=== PATIENT | female | born 1955 | race Caucasian/White ===

== ENCOUNTER → 2022-11-01 | Outpatient (CLI) | payer MEDICARE, OTHER, SELFPAY ==
[2022-11-01 17:51] LABS: Absolute Neutrophil Count 3.9 X10^3/uL (2.0-7.7); Basophil# 0.04 X10^3/uL; Basophil% 0.5 % (0-1); Eosinophil# 0.14 X10^3/uL; Eosinophils% 1.9 % (0-5); Hematocrit 39.5 % (37-47); Hemoglobin 13.5 g/dL (12.0-15.0); Lymphocyte % 36.3 % (19-41); Mean Corp Hgb Conc 34.2 g/dL (32-36); Mean Corpuscular Hgb 31.9 pg (27.0-32.0); Mean Corpuscular Volume 93.4 fL (81-99); Mean Platelet Vol. 9.8 fl (6.2-12.0); Monocyte# 0.63 X10^3/uL; Monocyte% 8.5 % (0-10); NRBC Flagged by Analyzer 0 % (0-5); Neutrophil # 3.91 X10^3/uL (2.7-7.7); Neutrophil % 52.5 % (47-70); Platelet Count 314 K/mm3 (150-450); RBC Distribution Width CV 12.3 % (11.6-14.6); RBC Distribution Width SD 42.4 fl (35.1-43.9); Red Blood Count 4.23 M/mm3 (4.2-5.4); White Blood Count 7.4 K/mm3 (4.4-11.0)
[2022-11-01 18:26] LABS: ALB/GLOB Ratio 1.1 RATIO (0.9-2.4); AST(SGOT) 21 U/L (15-37); Alanine Aminotransfer ALT/SGPT 33 U/L (13-56); Albumin, Serum 4.2 g/dL (3.2-5.0); Alkaline Phosphatase 55 U/L (45-117); Anion Gap 7 (5-15); BUN 21 mg/dL (7-18); BUN/Creat Ratio 25.8 RATIO (10-20); Calcium,Total 9.4 mg/dL (8.5-10.1); Chloride 102 mmol/L (98-107); Creatinine, Serum 0.81 mg/dL (0.55-1.02); EST Glomerular Filtration Rate 74 mL/min (>60); Est Glom Filt Rate - Afr Amer 90 mL/min (>60); Globulin 3.8 g/dL (2.2-4.2); Glucose 92 mg/dL (74-106); Potassium 3.7 mmol/L (3.5-5.1); Sodium Level 138 mmol/L (136-145)
[2022-11-01 18:51] LABS: Hepatitis C Antibody Non-Reactive (Nonreactive); Vitamin D,25 Hydroxy 98.9 ng/mL
== END | disposition home or self-care (01) ==
LOC: POLAB3 15:57
PROVIDERS: Visit Provider Family Medicine Geriatric Medicine
DX: Z13.89 Encounter for screening for other disorder (principal); I10 Essential (primary) hypertension; E55.9 Vitamin D deficiency, unspecified
CPT/HCPCS: 36415; 80053; 82306; 84443; 85025; 86803

== ENCOUNTER → 2023-05-03 | Outpatient (CLI) | payer MEDICARE, OTHER, SELFPAY ==
[2023-05-03 12:07] LABS: Absolute Lymphocyte Count 1.96 X10^3/uL (0.83-4.51); Absolute Neutrophil Count 3.6 X10^3/uL (2.0-7.7); Basophil# 0.04 X10^3/uL; Basophil% 0.6 % (0-1); Eosinophil# 0.14 X10^3/uL; Eosinophils% 2.2 % (0-5); Hematocrit 37.8 % (37-47); Hemoglobin 12.9 g/dL (12.0-15.0); Lymphocyte # 1.96 X10^3/ul (0.83-4.51); Lymphocyte % 30.9 % (19-41); Mean Corp Hgb Conc 34.1 g/dL (32-36); Mean Corpuscular Hgb 32.2 pg (27.0-32.0); Mean Corpuscular Volume 94.3 fL (81-99); Mean Platelet Vol. 10.2 fl (6.2-12.0); Monocyte# 0.62 X10^3/uL; Monocyte% 9.8 % (0-10); NRBC Flagged by Analyzer 0 % (0-5); Neutrophil # 3.57 X10^3/uL (2.7-7.7); Neutrophil % 56.2 % (47-70); Platelet Count 283 K/mm3 (150-450); RBC Distribution Width SD 41.6 fl (35.1-43.9); Red Blood Count 4.01 M/mm3 (4.2-5.4); White Blood Count 6.4 K/mm3 (4.4-11.0)
[2023-05-03 12:34] LABS: Vitamin D,25 Hydroxy 87.9 ng/mL
[2023-05-03 12:42] LABS: ALB/GLOB Ratio 0.9 RATIO (0.9-2.4); AST(SGOT) 21 U/L (15-37); Alanine Aminotransfer ALT/SGPT 30 U/L (13-56); Albumin, Serum 3.5 g/dL (3.2-5.0); Alkaline Phosphatase 40 U/L (45-117); Anion Gap 6 (5-15); BUN 20 mg/dL (7-18); BUN/Creat Ratio 20.6 RATIO (10-20); Chloride 105 mmol/L (98-107); Creatinine, Serum 0.97 mg/dL (0.55-1.02); EST Glomerular Filtration Rate 60 mL/min (>60); Est Glom Filt Rate - Afr Amer 73 mL/min (>60); Globulin 3.7 g/dL (2.2-4.2); Glucose 93 mg/dL (74-106); Potassium 3.7 mmol/L (3.5-5.1); Protein, Total 7.2 g/dL (6.4-8.2); Sodium Level 138 mmol/L (136-145); Thyroid Stim Hormone (TSH) 1.04 uIU/mL (0.358-3.74)
== END | disposition home or self-care (01) ==
PROVIDERS: Visit Provider Family Medicine Geriatric Medicine
DX: I10 Essential (primary) hypertension (principal); E55.9 Vitamin D deficiency, unspecified
CPT/HCPCS: 36415; 80053; 82306; 84443; 85025

== ENCOUNTER → 2023-08-10 | Outpatient (CLI) | payer MEDICARE, OTHER, SELFPAY ==
--- NOTE | 2023-08-10 15:41 | RAD_ITS ---
INDICATION: LUMBAR DISC DISEASE EXAMINATION/TECHNIQUE: X-RAY - XR Spine Lumbar Min 4 Views COMPARISON: None. FINDINGS: VERTEBRAE: Preserved vertebral body height. No fracture. No spondylolisthesis. Preservation of the normal lumbar lordosis. Moderate multilevel facet arthropathy. Slight right convex curvature of the lumbar spine. DISCS: Moderate multilevel degenerative disc disease and spondylosis. INCLUDED ABDOMEN: Included bowel gas pattern is non-obstructive. RAD/L/S Spine Min 4 Views IMPRESSION: No evidence of lumbar spinal fracture or spondylolisthesis. Moderate multilevel degenerative disc disease and spondylosis. Slight right convex curvature of the lumbar spine. Electronically Signed: Chivo Page MD at 0:12 EDT ,
== END | disposition home or self-care (01) ==
LOC: RAD 15:34
PROVIDERS: PCP Family Medicine Geriatric Medicine; Referring Provider Family Medicine Geriatric Medicine; Visit Provider Family Medicine Geriatric Medicine
DX: M51.9 Unspecified thoracic, thoracolumbar and lumbosacral intervertebral disc disorder (principal)
CPT/HCPCS: 72110

== ENCOUNTER → 2023-09-05 | Outpatient (CLI) | payer MEDICARE, OTHER, SELFPAY ==
--- NOTE | 2023-09-05 07:26 | MRI_ITS ---
STUDY: MRI LUMBAR SPINE WITHOUT CONTRAST REASON FOR EXAM: Female, 67 years old. RADICULOPATHY TECHNIQUE: Standardized fat and water weighted pulse sequences were obtained in the sagittal and axial planes. COMPARISON: Radiograph lumbar spine August 10, 2023 FINDINGS: T12-L1: Normal endplates. Normal disc height, hydration and morphology. Normal bilateral facet joints. Normal central canal and bilateral lateral recesses. Normal bilateral intervertebral neural foramina. Normal lumbar lordosis. There is no substantial scoliosis. Normal conus medullaris that terminates at the L2. L1-2: Normal endplates. Normal disc height, hydration and morphology. Normal bilateral facet joints. Normal central canal and bilateral lateral recesses. Normal bilateral intervertebral neural foramina. Small posterior broad-based central disc protrusion. L2-3: Normal endplates. Normal disc height, hydration and morphology. Normal bilateral facet joints. Normal central canal and bilateral lateral recesses. Normal bilateral intervertebral neural foramina. L3-4: Normal endplates. Normal disc height, hydration and morphology. Normal bilateral facet joints. Normal central canal and bilateral lateral recesses. Normal bilateral intervertebral neural foramina. L4-5: Normal endplates. Normal disc height, hydration and morphology. Normal bilateral facet joints. Normal central canal and bilateral lateral recesses. Moderate broad-based posterior disc protrusion and moderate narrowing bilateral intervertebral neural foramina. L5-S1: Normal endplates. Normal disc height, hydration and morphology. Normal bilateral facet joints. Normal central canal and bilateral lateral recesses. Normal bilateral intervertebral neural foramina. Normal visualized sacral ala. Normal visualized paraspinous soft tissue structures. MRI/Spine Lumbar (Routine) IMPRESSION: Moderate disc protrusion L4-5 with moderate bilateral neural foraminal narrowing. Small disc protrusion L1-2. Electronically Signed: Hank Montelongo MD at 23:32 EST ,
== END | disposition home or self-care (01) ==
LOC: MRI 09:00
PROVIDERS: PCP Family Medicine Geriatric Medicine; Referring Provider Family Medicine Geriatric Medicine; Visit Provider Family Medicine Geriatric Medicine
DX: M54.17 Radiculopathy, lumbosacral region (principal)
CPT/HCPCS: 72148

== ENCOUNTER → 2023-11-07 | Outpatient (CLI) | payer MEDICARE, OTHER, SELFPAY ==
--- OUTSIDE RECORDS SUMMARY | 2023-11-07 09:58 | XMS RPT_ITS | CCD ---
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 Name Role Phone Yudelka Radha CAM Primary Care Provider [phone] Carl Sahu III Unavailable Mathew Robledo OD Unavailable Lei Mckenna MD Unavailable Jadyn Caldwell DO, Arnold D Unavailable YUDELKA, RADHA L Primary Care Unavailable YUDELKA, RADHA L Primary Care Unavailable YUDELKA, RADHA L Referring Unavailable YUDELKA, RADHA L Attending Unavailable ZAPIEN, CANDY Attending Unavailable YUDELKA, RADHA L Primary Care Unavailable YUDELKA, RADHA L Primary Care Unavailable YUDELKA, RADHA L Referring Unavailable YUDELKA, RADHA L Attending Unavailable Yudelka DORadha L Primary Care Provider Carl Sahu III Unavailable [phone] Mathew Robledo OD Unavailable Lei Mckenna MD Unavailable Jadyn Caldwell DO, Arnold D Unavailable Yudelka Radha CAM Primary Care Provider [phone] Carl Sahu III Unavailable Mathew Robledo OD Unavailable Lei Mckenna MD Unavailable Jadyn Caldwell DO, Arnold D Unavailable RADHA JHA Attending Unavailable CARL SAHU Attending Unavailable Bala MOSES, Lei Unavailable Luis Alberto FRIAS MD, Walter Watson Unavailable CARL SAHU III Attending Unavailab CARL Schafer III Referring Unavailab meg Mckenna MD, Lei Unavailable Allergies Allergy Classification Reported Allergen(s) Allergy Type Date of Onset Reaction(s) Facility (2 sources) Penicillins; Translations: [PENICILLINS] Propensity to adverse reactions to drug 9 Unknown [facility] (13 sources) Penicillins Propensity to adverse reactions to drug 9 Unknown, Swelling [facility] Medications Completed/Discontinued Medications Medication Drug Class(es) Dates Sig (Normalized) Sig (Original) aspirin 81 mg delayed release oral tablet (10 sources) Platelet Aggregation Inhibitor, Nonsteroidal Anti-inflammatory Drug take 1 tablet by mouth once daily aspirin, enteric coated (ASPIRIN, ENTERIC COATED) 81 mg EC tablet Take 81 mg by mouth once daily. 0 Active Problems Active Problems Problem Classification Problem Date Documented Date Episodic/Chronic Essential hypertension (16 sources) Essential hypertension; Translations: [Essential (primary) hypertension] 04-21-2020 Chronic Immunizations and screening for infectious disease (4 sources) Encounter for immunization; Translations: [Requires varicella vaccination] Onset: 08-17-2021 Episodic Menopausal disorders (1 source) Postmenopausal atrophic vaginitis; Translations: [Postmenopausal atrophic vaginitis] Onset: 08-16-2023 Chronic Osteoporosis (14 sources) Osteoporosis; Translations: [Age-related osteoporosis without current pathological fracture] 01-09-2019 Chronic Other screening for suspected conditions (not mental disorders or infectious disease) (1 source) Encounter for screening mammogram for malignant neoplasm of breast; Translations: [Encounter for screening mammogram for malignant neoplasm of breast] Onset: 08-16-2023 Episodic Retinal detachments; defects; vascular occlusion; and retinopathy (14 sources) Degenerative disorder of macula ; Translations: [Unspecified macular degeneration] 01-09-2019 Chronic Thyroid disorders (16 sources) Hypothyroidism; Translations: [Hypothyroidism, unspecified] 01-09-2019 Chronic Past or Other Problems Problem Classification Problem Date Documented Da te Episodic/Chronic Unclassified (1 source) OSTEOPEROSIS Onset: 09-24-2022 Results Test Name Value Interpretation Reference Range Facil ity Vital Signs Date Time Vital Sign Value Performing Clinician Tamanna lity 07-30-2022 14:44-0400 Body temperature 99.1 [degF] Nurse [place] Work Phone: [facility] Encounters Encounter Date Encounter Type Care Provider Facility Start: 09-25-2023 Refill Thelma Quill en SHUTTLE REPAIRER.FENDER REPAIRER Work Phone: [facility] Procedures Date Procedure Procedure Detail Performing Clinician Start: 01-15-2023 MARIANN SCREENING W TRACY Sahu MD Work Phone: Start: 01-15-2023 Mammography Radha Shil ling DO Work Phone: Start: 09-24-2022 CREATININE BLD Radha L Yudelka DO Work Phone: Start: 07-30-2022 INFLUENZA SEASONAL QUADRIVALENT HIGH DOSE AGE 65+ Radha L Yudelka DO Work Phone: Start: 04-28-[address] ri L Yudelka DO Work Phone: Start: 04-28-2022 T3 FREE BLD Radha L Sh illing DO Work Phone: Start: 04-28-2022 TSH BLD Radha L Sh illing DO Work Phone: Start: 04-28-2022 Adult depression scr eening assessment Radha Yudelka DO Work Phone: Start: 08-25-2021 Mammography Radha Shil ling DO Work Phone: Start: 04-22-2021 Adult depression scr eening assessment Radha Yudelka DO Work Phone: Start: 04-22-2021 Lipid 1996 panel - S romie or Plasma Fred Rodriguez Jr. Work Phone: Start: 12-24-2011 Colonoscopy Radha Shil ling DO Work Phone: Start: 06-17-2009 SURGICAL PATHOLOGY, CONVERTED Carl Sahu MD Work Phone: Start: 08-15-2008 CYTOLOGY TEAM LEAD, CONVERTED Fred Rodriguez Work Phone: Start: 06-06-2007 CYTOLOGY TEAM LEAD, CONVERTED Fred Rodriguez Work Phone: Start: 04-01-2006 CYTOLOGY TEAM LEAD, CONVERTED Fred Rodriguez Work Phone: Plan of Treatment Date Care Activity Detail Author Start: 04-22-2026 Lipid 1996 panel - S romie or Plasma Lipid Screening [facility] Start: 04-22-2026 LIPID SCREEN LIPID SCREEN [facility] Start: 04-28-2025 DIABETES SCREEN DIABETES SCREEN [facility] Start: 04-28-2025 Diabetes Screening Diabetes Screenin g [facility] Start: 04-22-2024 DIABETES SCREEN DIABETES SCREEN [facility] Start: 01-16-2024 Mammography [facility] Start: 06-24-2023 Covid-19 Vaccine () Covid-19 Vaccine () [facility] Start: 06-24-2023 Influenza vaccination Influenza Vacc ine (#1) [facility] Start: 04-28-2023 Adult depression scr eening assessment DEPRESSION SCREENING [facility] Start: 04-28-2023 ANNUAL PCP TEAM HEALTH CARE AIDE ANKIT DISEASE VISIT ANNUAL PCP TEAM CHRONIC DISEASE VISIT [facility] Start: 01-08-2023 ANNUAL PCP TEAM HEALTH CARE AIDE ANKIT DISEASE VISIT ANNUAL PCP TEAM CHRONIC DISEASE VISIT [facility] Start: 10-29-2022 COLORECTAL CANCER SCREENING COLORECTAL CANCER SCREENING [facility] Immunizations Immunization Date Immunization Notes Care Provider Elinor de dios 07-30-2022 influenza, high-dose , quadrivalent vaccine (FLUZONE HIGH DOSE QUADRIVALENT) Nurse [place] Work Phone: [facility] 07-30-2022 influenza virus vaccine, unspecified formulation Fred Rodriguez Jr. Work Phone: [facility] 04-28-2022 zoster vaccine recombinant Radha Yudelka DO Work Phone: [facility] 08-17-2021 influenza, high-dose , quadrivalent vaccine (FLUZONE HIGH DOSE QUADRIVALENT) Radha Yudelka DO Work Phone: [facility] 08-21-2020 influenza, high-dose , quadrivalent vaccine (FLUZONE HIGH DOSE QUADRIVALENT) Radha Yudelka DO Work Phone: [facility] 08-21-2020 pneumococcal polysaccharide vaccine, 23 valent Radha Yudelka DO Work Phone: [facility] 08-09-2018 Influenza, injectabl e, Madin Indira Canine Kidney, preservative free, quadrivalent Radha Yudelka DO Work Phone: [facility] NEGATED: Highlighted row has not occurred!01-09-2019 tetanus toxoid, reduced diphtheria toxoid, and acellular pertussis vaccine, adsorbed Radha Yudelka DO Work Phone: [facility] Payers Date Payer Category Payer Medicare [id number] 2019 Unknown MMO MMO MEDICARE SUPPLEMENT [id number] 2019-Present [phone] [address] [place] [address] Indemnity [id number] 2019 Unknown MMO MMO MEDICARE SUPPLEMENT [id number] 2019-Present [phone] [address] [place] [address] Indemnity [id number] 2018 Medicare MEDICARE MEDICAR E A AND B [id number] 2018-Present [phone] [place] [address] Medicare [id number] 2018 Medicare MEDICARE MEDICAR E A AND B [id number] 2018-Present [phone] [place] [address] Medicare [id number] 2018 Medicare [id number] 1955 Unknown [id number] Unknown [id number] Unknown [id number] Social History Date Type Detail Facility Start: 12-22-2018 Tobacco smoking stat [facility] Never smoked tobacco [facility] Start: 12-22-2018 Tobacco use and exposure Smoke less tobacco non-user [facility] Start: 01-08-2022 End: 04-28-2022 Alcohol intake Current non-drinker of alcohol (finding) [facility] Start: 1955 Sex Assigned At Not on file [facility] Start: 04-18-2022 End: 07-30-2022 Exposure to SARS-CoV-2 (event) Not sure [facility] Tobacco smoking stat [facility] Tobacco smoking consumption unknown [facility] Start: 04-28-2022 End: 11-21-2022 History of Social function [facility] Start: 04-28-2022 End: 11-21-2022 Tobacco use panel [facility] Adult Depression Screening Assessment 0 [facility] Clinical Notes 09-04-2021 to 09-26-2023 Telephone Encounter - Pippa Miranda MA - 09/26/2023 1:45 PM ESTTelephone Encounter - Radha Jha DO - 09/26/2023 12:20 PM ESTTelephone Encounter - Lew Dickens - 07/27/2022 9:38 AM EDT Note Date & Type Note Facility 09-26-2023 Miscellaneous Notes Formattin g of this note might be different from the original. Her and her spouse transferred to [place]. She cancelled April 2023. Did she move?? Pharmacy faxes requesting refill: Requested Prescriptions Pending Prescriptions Disp Refills metoprolol succinate ER (TOPROL XL) 50 mg 24 hr tablet [Pharmacy Med Name: METOPROLOL SUCC ER 50 MG TAB] 90 tablet 1 Sig: take 1 tablet by mouth every day lisinopril-hydroCHLOROthiazide (ZESTORETIC) 20-25 mg per tablet [Pharmacy Med Name: LISINOPRIL-HCTZ 20-25 MG TAB] 90 tablet 1 Sig: take 1 tablet by mouth every day levothyroxine (SYNTHROID) 125 mcg tablet [Pharmacy Med Name: LEVOTHYROXINE 125 MCG TABLET] 90 tablet 1 Sig: take 1 tablet by mouth every day Date of last visit:Visit date not found Phone #: [phone] (home) [phone] (cell) The patients preferred pharmacy has been captured for this encounter? yes documented in this encounter [facility] 07-27-2022 Miscellaneous Notes Formattin g of this note might be different from the original. Pt advised Yes, they should be fine together. Patient calls today. Reason for Call: Patient stated she is scheduled for her 2nd shingrix shot on Monday 07/30 and would like to know if she can get her Flu shot at the same time or if it is recommended she wait between vaccines. Please advise Mai. Thanks! [phone] (home) [phone] (cell) Patient last appointment: 04/28/2022 Lew Dickens documented in this encounter [facility] 04-28-2022 Note HNO ID: [id number] Author: Radha Jha DO Service: ? Author Type: Physician Type: Progress Notes Filed: 04/28/2022 9:11 AM Note Text: SUBJECTIVE Mai Perez is a 66 year old female here today for routine annual follow up: Patient presents with: Hypertension: Stable. Hypothyroidism: Stable. Osteoporosis: Reclast infusion August 2021. Will order for August 2022. Macular degeneration: Follows with Dr. Salamanca and Dr. Mathew Robledo at [facility]. Concerns: would like a shingrix vaccine. Feeling well. No concerns. Denies chest pain, shortness of breath or palpitations. Denies indigestion, heartburn or bowel changes. No melena or hematochezia. Denies side effects to medications. No recent labs. Will draw bmp and thyroid labs today. She is taking his blood pressure medication(s): yes Tolerating the medication(s) for blood pressure: yes Taking her blood pressures at home: yes Blood pressure readings are at goal: 120-140/70-80's Review of high blood pressure symptoms: Any headaches? no Any chest pains? no Any swelling? no PAST MEDICAL HISTORY Diagnosis Date - Hypertension 2004 - Hypothyroid 1981 - Macular degeneration Follows Dr. Mathew Robledo @ [facility] [place]. every 6 months - Osteoporosis 10 years ago ALLERGIES Allergen Reactions - Penicillins Swelling Medication: Current Outpatient Medications Medication Sig Dispense Refill - lisinopril-hydroCHLOROthiazide (PRINZIDE, ZESTORETIC) 20-25 mg per tablet TAKE 1 TABLET BY MOUTH EVERY DAY 90 tablet 3 - levothyroxine (SYNTHROID) 125 mcg tablet TAKE 1 TABLET BY MOUTH EVERY DAY 90 tablet 3 - metoprolol succinate ER (TOPROL XL) 50 mg 24 hr tablet TAKE 1 TABLET BY MOUTH EVERY DAY 90 tablet 3 - ofloxacin (OCUFLOX) 0.3 % ophthalmic solution - aspirin, enteric coated (ASPIRIN, ENTERIC COATED) 81 mg EC tablet Take 81 mg by mouth once daily. - calcium carbonate/vitamin D3 (CALCIUM 600 + D ORAL) Take by mouth once daily. - BIOTIN ORAL Take by mouth once daily. - omega-3 fatty acids (SUPER OMEGA-3) 1,000 mg cap Take 2 g by mouth twice daily. - vit A/vit C/vit E/zinc/copper (ICAPS AREDS ORAL) Take 2 tablets by mouth twice daily. - zoledronic acid (RECLAST) 5 mg/100 mL pgbk PREMIX piggyback Inject 100 mL intravenously one time only for 1 dose. (Patient not taking: Reported on 04/28/2022 ) 100 mL 0 No current facility-administered medications for this visit. PAST SURGICAL HISTORY Procedure Laterality Date - SECTION HX 06/1978, 03/1981 Social History Tobacco Use - Smoking status: Never Smoker - Smokeless tobacco: Never Used Vaping Use - Vaping Use: Never used Substance Use Topics - Alcohol use: No - Drug use: No FAMILY HISTORY Problem Relation Age of Onset - other (Unexpected ) Mother Stillborn - Parkinson?s Disease Father - other (Industrial Accident) Brother - Macular Degen Paternal Grandmother Review of Systems Constitutional: Negative for chills, fatigue and fever. HENT: Negative for congestion, ear pain and sore throat. Respiratory: Negative for cough, chest tightness, shortness of breath and wheezing. Cardiovascular: Negative for chest pain, palpitations and leg swelling. Gastrointestinal: Negative for abdominal pain, constipation, diarrhea, nausea and vomiting. Musculoskeletal: Negative for back pain, gait problem, joint swelling, myalgias and neck pain. Skin: Negative for rash and wound. Neurological: Negative for dizziness, numbness and headaches. Psychiatric/Behavioral: Negative for dysphoric mood. The patient is not nervous/anxious. OBJECTIVE BP 135/73 Pulse (!) 56 Ht 144.8 cm (4' 9 ) Wt 55.4 kg (122 lb 3.2 oz) LMP 04/22/2009 (Approximate) SpO2 98% BMI 26.44 kg/m? Body mass index is 26.44 kg/m?. Last 3 Encounter BP Readings: Date: BP: 01/08/2022 151/83 09/04/2021 108/65 04/22/2021 134/70 Last 3 Encounter Pulse Readings: Date: Pulse: 01/08/2022 66 09/04/2021 66 04/22/2021 57 Last 3 Encounter Wt Readings: Date: Wt: 01/08/2022 56.3 kg (124 lb 1.6 oz) 09/04/2021 56.6 kg (124 lb 12.8 oz) 04/22/2021 53 kg (116 lb 12.8 oz) Physical Exam Constitutional: General: She is not in acute distress. Appearance: Normal appearance. She is well-developed. HENT: Head: Normocephalic and atraumatic. Neck: Vascular: No carotid bruit. Cardiovascular: Rate and Rhythm: Normal rate and regular rhythm. Heart sounds: Normal heart sounds. Pulmonary: Effort: Pulmonary effort is normal. Breath sounds: Normal breath sounds. No wheezing, rhonchi or rales. Musculoskeletal: General: Normal range of motion. Right lower leg: No edema. Left lower leg: No edema. Skin: General: Skin is warm and dry. Neurological: Mental Status: She is alert and oriented to person, place, and time. Psychiatric: Mood and Affect: Mood normal. Speech: Speech normal. Behavior: Behavior normal. Thought Conten (more content not included)... [facility] 04-28-2022 Miscellaneous Notes Are you able to see if a PA is required for this pt Reclast. She is not due until August this year. But Dr. Jha wanted to go ahead and order this. Let me know Thank you very much. documented in this encounter [facility] 04-22-2022 Miscellaneous Notes Noted thank you Patient calls today. States at her upcoming visit she would like to get shingles vaccination. Added to appointment notes. Thanks Shaarth Carter documented in this encounter [facility] 02-18-2022 Miscellaneous Notes Called Mai and gave her Candy's message below and also told her the cost for each shot. She said when Guanaco got his at [facility], it was also $200. She will probably get her shot when she comes in on 04/28 for her routine appt with Dr. Jha. I asked her to let us know for sure a few days before so that we could order the shot and have the doctor sign it. Please let Imani know that there is no definitive time to get that after having the shingles. It is recommended that she make sure that the shingles lesions are totally healed before she does the vaccine. I would say she would be okay to get the shingles vaccine sometime in February if she would like. Please update her on the osman when you talk with her. Tresa Zapien APRN.VALORIE While on the phone with Mai in regards to her she asked, how soon after having shingles should she get the vaccine or do you recommend she get it? I advised her that she should be good to go ahead and get the vaccine since she is no longer having symptoms. She wanted me to ask you if she should get it and how soon after. I advised I would call her back with you recommendation. FYI: I did run [facility] for out of pocket cost and it would be $202.00 each shot, she may get at pharmacy cheaper. documented in this encounter [facility] 01-08-2022 Note HNO ID: [id number] Author: Tresa Zapien APRN.CNP Service: ? Author Type: Nurse Practitioner Type: Progress Notes Filed: 01/08/2022 11:59 AM Note Text: SUBJECTIVE: Mai Perez is a 66 year old female here today for Rash (back left should). HPI: Mai presents with pain and a rash on the left shoulder. She started with tightness in back of left shoulder 3 days ago. Now it itches and it hurts. Has been taking ibuprofen. Has a reddish light rash back of left shoulder blade. PAST MEDICAL HISTORY Diagnosis Date - Hypertension 2004 - Hypothyroid 1981 - Macular degeneration Follows Dr. Mathew Robledo @ [facility]. every 6 months - Osteoporosis 10 years ago ALLERGIES Allergen Reactions - Penicillins Unknown Medications: Current Outpatient Medications Medication Sig Dispense Refill - ofloxacin (OCUFLOX) 0.3 % ophthalmic solution - metoprolol succinate ER (TOPROL XL) 50 mg 24 hr tablet TAKE 1 TABLET BY MOUTH EVERY DAY 90 tablet 2 - levothyroxine (SYNTHROID) 125 mcg tablet TAKE 1 TABLET BY MOUTH EVERY DAY 90 tablet 2 - lisinopril-hydroCHLOROthiazide (PRINZIDE, ZESTORETIC) 20-25 mg per tablet TAKE 1 TABLET BY MOUTH EVERY DAY 90 tablet 2 - aspirin, enteric coated (ASPIRIN, ENTERIC COATED) 81 mg EC tablet Take 81 mg by mouth once daily. - calcium carbonate/vitamin D3 (CALCIUM 600 + D ORAL) Take by mouth once daily. - BIOTIN ORAL Take by mouth once daily. - omega-3 fatty acids (SUPER OMEGA-3) 1,000 mg cap Take 2 g by mouth twice daily. - vit A/vit C/vit E/zinc/copper (ICAPS AREDS ORAL) Take 2 tablets by mouth twice daily. - zoledronic acid (RECLAST) 5 mg/100 mL pgbk PREMIX piggyback Inject 100 mL intravenously one time only for 1 dose. 100 mL 0 No current facility-administered medications for this visit. PAST SURGICAL HISTORY Procedure Laterality Date - SECTION HX 06/1978, 03/1981 Social History Tobacco Use - Smoking status: Never Smoker - Smokeless tobacco: Never Used Vaping Use - Vaping Use: Never used Substance Use Topics - Alcohol use: No - Drug use: No FAMILY HISTORY Problem Relation Age of Onset - other (Unexpected ) Mother Stillborn - Parkinson?s Disease Father - other (Industrial Accident) Brother - Macular Degen Paternal Grandmother Review of Systems Constitutional: Negative for chills, fatigue and fever. HENT: Negative. Eyes: Negative. Respiratory: Negative. Cardiovascular: Negative. Gastrointestinal: Negative. Endocrine: Negative. Genitourinary: Negative. Musculoskeletal: Positive for myalgias (left shoulder). Skin: Positive for color change and rash. Allergic/Immunologic: Negative. Neurological: Negative. Hematological: Negative. Psychiatric/Behavioral: Negative. OBJECTIVE: BP 151/83 Pulse 66 Temp 37 ?C (98.6 ?F) (Oral) Ht 144.8 cm (4' 9 ) Wt 56.3 kg (124 lb 1.6 oz) LMP 04/22/2009 (Approximate) SpO2 99% BMI 26.85 kg/m? BMI 26.85 kg/(m2) Physical Exam Constitutional: Appearance: Normal appearance. She is not ill-appearing. Pulmonary: Effort: Pulmonary effort is normal. Skin: General: Skin is warm and dry. Findings: Erythema and rash (At this time the rash is raised and red but no open areas were noted) present. Neurological: Mental Status: She is alert and oriented to person, place, and time. ASSESSMENT/PLAN: 1. Herpes zoster without complication - ICD9: 053.9, ICD10: B02.9 -We will start her on acyclovir 5 times daily for the next 5 days. -Encouraged her to use ibuprofen or Tylenol as needed -Cool compresses or Capzasin cream to help with any increasing pain. - ACYCLOVIR 400 MG TABLET Tresa Zapien APRN.FENDER REPAIRER The above medical documentation was generated using [employer] voice recognition system, as such, the contents may contain grammatical errors. [facility] 11-16-2021 Note Patient Outreach ([facility]) MAI PEREZ ([id number]) 1955 F Date Time Provider Department 11/16/21 [facility]URPHY [facility] During your visit today, we recorded the following information about you: Sharath Murphy RN 11/16/2021 11:10 AM Signed Chart update for clinical recovery for COVID Allergies As of Date: 11/16/2021 Noted Allergy Reaction PENICILLINS 12/22/2018 16 - Unknown Date Reviewed: 09/04/2021 Reviewed by: Radha Jha DO - Fully Assessed Prescriptions as of 11/16/2021 - ofloxacin (OCUFLOX) 0.3 % ophthalmic solution - zoledronic acid (RECLAST) 5 mg/100 mL pgbk PREMIX piggyback Inject 100 mL intravenously one time only for 1 dose. - metoprolol succinate ER (TOPROL XL) 50 mg 24 hr tablet TAKE 1 TABLET BY MOUTH EVERY DAY - levothyroxine (SYNTHROID) 125 mcg tablet TAKE 1 TABLET BY MOUTH EVERY DAY - lisinopril-hydroCHLOROthiazide (PRINZIDE, ZESTORETIC) 20-25 mg per tablet TAKE 1 TABLET BY MOUTH EVERY DAY - aspirin, enteric coated (ASPIRIN, ENTERIC COATED) 81 mg EC tablet Take 81 mg by mouth once daily. - calcium carbonate/vitamin D3 (CALCIUM 600 + D ORAL) Take by mouth once daily. - BIOTIN ORAL Take by mouth once daily. - omega-3 fatty acids (SUPER OMEGA-3) 1,000 mg cap Take 2 g by mouth twice daily. - vit A/vit C/vit E/zinc/copper (ICAPS AREDS ORAL) Take 2 tablets by mouth twice daily. Meds Comments as of 03/26/2020: 03/26/20 The medications are managed by this patient by: PATIENT FEMI Rogers Problem List As Of Date 11/16/2021 Noted Resolved Essential hypertension [I10] Osteoporosis [M81.0] Hypothyroid [E03.9] Macular degeneration [H35.30] Encounter Status:Closed by SHARATH MURPHY on 11/16/21 [facility] 11-16-2021 Note HNO ID: [id number] Author: Sharath Murphy RN Service: ? Author Type: Registered Nurse Type: Progress Notes Filed: 11/16/2021 11:10 AM Note Text: Chart update for clinical recovery for AMANDA [facility] 09-04-2021 Note HNO ID: [id number] Author: Radha Jha, DO Service: ? Author Type: Physician Type: Progress Notes Filed: 09/04/2021 12:18 PM Note Text: SUBJECTIVE Mai Perez is a 65 year old female who returns for results follow up: Patient presents with: Review Bone Density Testing: Osteopenia. Report is provided for Mai and reviewed with her. Two areas show statistically significant difference in density. Treatment is recommended and she is in agreement with this. Will order Reclast infusion. Her calcium and bone density are good. She does walk regularly and work in her yard. Concerns: No concerns today, feeling good. Her medications were reviewed today and her list is now up to date. She is compliant on taking her medications :Yes She is tolerating her medication(s) without side effects: Yes She is following an appropriate diet for her medical problems: Yes She is getting some exercise in? Yes PAST MEDICAL HISTORY Diagnosis Date - Hypertension 2004 - Hypothyroid 1981 - Macular degeneration Follows Dr. Mathew Robledo @ [facility]. every 6 months - Osteoporosis 10 years ago ALLERGIES Allergen Reactions - Penicillins Unknown Medication: Current Outpatient Medications Medication Sig Dispense Refill - ofloxacin (OCUFLOX) 0.3 % ophthalmic solution - metoprolol succinate ER (TOPROL XL) 50 mg 24 hr tablet TAKE 1 TABLET BY MOUTH EVERY DAY 90 tablet 2 - levothyroxine (SYNTHROID) 125 mcg tablet TAKE 1 TABLET BY MOUTH EVERY DAY 90 tablet 2 - lisinopril-hydroCHLOROthiazide (PRINZIDE, ZESTORETIC) 20-25 mg per tablet TAKE 1 TABLET BY MOUTH EVERY DAY 90 tablet 2 - aspirin, enteric coated (ASPIRIN, ENTERIC COATED) 81 mg EC tablet Take 81 mg by mouth once daily. - calcium carbonate/vitamin D3 (CALCIUM 600 + D ORAL) Take by mouth once daily. - BIOTIN ORAL Take by mouth once daily. - omega-3 fatty acids (SUPER OMEGA-3) 1,000 mg cap Take 2 g by mouth twice daily. - vit A/vit C/vit E/zinc/copper (ICAPS AREDS ORAL) Take 2 tablets by mouth twice daily. No current facility-administered medications for this visit. PAST SURGICAL HISTORY Procedure Laterality Date - SECTION HX 06/1978, 03/1981 Social History Tobacco Use - Smoking status: Never Smoker - Smokeless tobacco: Never Used Vaping Use - Vaping Use: Never used Substance Use Topics - Alcohol use: No - Drug use: No FAMILY HISTORY Problem Relation Age of Onset - other (Unexpected ) Mother Stillborn - Parkinson?s Disease Father - other (Industrial Accident) Brother - Macular Degen Paternal Grandmother Review of Systems Constitutional: Negative for chills, fatigue and fever. HENT: Negative for congestion, ear pain and sore throat. Respiratory: Negative for cough, chest tightness, shortness of breath and wheezing. Cardiovascular: Negative for chest pain, palpitations and leg swelling. Gastrointestinal: Negative for abdominal pain, constipation, diarrhea, nausea and vomiting. Musculoskeletal: Negative for back pain, gait problem, joint swelling, myalgias and neck pain. Skin: Negative for rash and wound. Neurological: Negative for dizziness, numbness and headaches. Psychiatric/Behavioral: Negative for dysphoric mood. The patient is not nervous/anxious. OBJECTIVE BP 108/65 Pulse 66 Temp 37.1 ?C (98.7 ?F) (Oral) Ht 144.8 cm (4' 9 ) Wt 56.6 kg (124 lb 12.8 oz) LMP 04/22/2009 (Approximate) SpO2 98% BMI 27.01 kg/m? Body mass index is 27.01 kg/m?. Last 3 Encounter BP Readings: Date: BP: 09/04/2021 108/65 04/22/2021 134/70 05/09/2020 167/72 Last 3 Encounter Pulse Readings: Date: Pulse: 09/04/2021 66 04/22/2021 57 05/09/2020 63 Last 3 Encounter Wt Readings: Date: Wt: 09/04/2021 56.6 kg (124 lb 12.8 oz) 04/22/2021 53 kg (116 lb 12.8 oz) 04/21/2020 52.8 kg (116 lb 8 oz) Physical Exam Constitutional: General: She is not in acute distress. Appearance: Normal appearance. She is well-developed. HENT: Head: Normocephalic and atraumatic. Cardiovascular: Rate and Rhythm: Normal rate and regular rhythm. Heart sounds: Normal heart sounds. Pulmonary: Effort: Pulmonary effort is normal. Breath sounds: Normal breath sounds. No wheezing, rhonchi or rales. Musculoskeletal: General: Normal range of motion. Skin: General: Skin is warm and dry. Neurological: Mental Status: She is alert and oriented to person, place, and time. Psychiatric: Mood and Affect: Mood normal. Speech: Speech normal. Behavior: Behavior normal. Thought Content: Thought content normal. Judgment: Judgment normal. Assessment/Plan: Encounter Diagnosis ICD-10-CM 1. Age-related osteoporosis without current pathological fracture M81.0 zoledronic acid (RECLAST) 5 mg/100 mL pgbk PREMIX piggyback 1) See diagnoses and orders for additional plan(s). 2) Medications were reviewed, list was updated, and refills given if needed. 3) Encouraged pro (more content not included)... [facility] Diagnosis Essential hypertension Unspecified essential hypertension Hypothyroidism, unspecified type [facility] Diagnosis Essential hypertension Unspecified essential hypertension Hypothyroidism, unspecified type documented in this encounter [facility] Summary Purpose Family History No Family History Records FoundNo Family History Records FoundNo Family History Records FoundNo Family History Records Found Advance Directives No Advanced Directives Records FoundNo Advanced Directives Records FoundNo Advanced Directives Records FoundNo Advanced Directives Records Found Health Concerns Infection Onset Date Last Indicated Resolved Time COVID-19 Rule-Out 07/26/2020 07/26/2020 07/29/2020 7:10 AM EDT Additional Source Comments Source Comments (unrecognize d section and content) In the event this informatio n is protected by the Federal Confidentiality of Alcohol and Drug Abuse Patient Records regulations: The Federal rules restrict any use of the information to criminally investigate or prosecute any alcohol or drug abuse patient.[facility] the event this information is protected by the Federal Confidentiality of Alcohol and Drug Abuse Patient Records regulations: The Federal rules restrict any use of the information to criminally investigate or prosecute any alcohol or drug abuse patient.[facility] the event this information is protected by the Federal Confidentiality of Alcohol and Drug Abuse Patient Records regulations: The Federal rules restrict any use of the information to criminally investigate or prosecute any alcohol or drug abuse patient.[facility] the event this information is protected by the Federal Confidentiality of Alcohol and Drug Abuse Patient Records regulations: The Federal rules restrict any use of the information to criminally investigate or prosecute any alcohol or drug abuse patient.[facility] the event this information is protected by the Federal Confidentiality of Alcohol and Drug Abuse Patient Records regulations: The Federal rules restrict any use of the information to criminally investigate or prosecute any alcohol or drug abuse patient.[facility] the event this information is protected by the Federal Confidentiality of Alcohol and Drug Abuse Patient Records regulations: The Federal rules restrict any use of the information to criminally investigate or prosecute any alcohol or drug abuse patient.[facility] the event this information is protected by the Federal Confidentiality of Alcohol and Drug Abuse Patient Records regulations: The Federal rules restrict any use of the information to criminally investigate or prosecute any alcohol or drug abuse patient.[facility] the event this information is protected by the Federal Confidentiality of Alcohol and Drug Abuse Patient Records regulations: The Federal rules restrict any use of the information to criminally investigate or prosecute any alcohol or drug abuse patient.[facility] the event this information is protected by the Federal Confidentiality of Alcohol and Drug Abuse Patient Records regulations: The Federal rules restrict any use of the information to criminally investigate or prosecute any alcohol or drug abuse patient.[facility] the event this information is protected by the Federal Confidentiality of Alcohol and Drug Abuse Patient Records regulations: The Federal rules restrict any use of the information to criminally investigate or prosecute any alcohol or drug abuse patient.[facility] the event this information is protected by the Federal Confidentiality of Alcohol and Drug Abuse Patient Records regulations: The Federal rules restrict any use of the information to criminally investigate or prosecute any alcohol or drug abuse patient.[facility] the event this information is protected by the Federal Confidentiality of Alcohol and Drug Abuse Patient Records regulations: The Federal rules restrict any use of the information to criminally investigate or prosecute any alcohol or drug abuse patient.[facility] the event this information is protected by the Federal Confidentiality of Alcohol and Drug Abuse Patient Records regulations: The Federal rules restrict any use of the information to criminally investigate or prosecute any alcohol or drug abuse patient.[facility] the event this information is protected by the Federal Confidentiality of Alcohol and Drug Abuse Patient Records regulations: The Federal rules restrict any use of the information to criminally investigate or prosecute any alcohol or drug abuse patient.[facility] Care Teams (unrecognized sec tion and content) 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 Relationship Specialty Start Date End Date Radha Jha DO [address] [place] [address] PCP - General Family Practice 12/22/18 Carl Sahu III [address] [place] [address] Obstetrics 01/09/19 Mathew Robledo, OD [address] [place] [address] Optometry 01/09/19 Lei Mckenna MD [address] [place] [address] Ophthalmology 04/21/20 Lawson Salamanca Jr., DO [address] [address] Ophthalmology 09/04/21 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 Relationship Specialty Start Date End Date Radha Jha, DO [address] [place] [address] PCP - General Family Practice 12/22/18 Carl Sahu III [facility] [place] [address] Obstetrics 01/09/19 Mathew Robledo, OD [address] [place] [address] Optometry 01/09/19 Lei Mckenna MD [address] [place] [address] Ophthalmology 04/21/20 Lawson Salamanca Jr., DO [address] [address] Ophthalmology 09/04/21 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 Relationship Specialty Start Date End Date Radha Jha, DO [address] [place] [address] PCP - General Family Medicine 12/22/[address] [place] [phone] Obstetrics 01/09/19 Mathew Robledo, OD [address] [place] [address] Optometry 01/09/19 Lei Mckenna MD [address] [place] [address] Ophthalmology 04/21/20 Lawson Salamanca Jr., DO [address] [address] Ophthalmology 09/04/21 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 Relationship Specialty Start Date End Date Radha Jha, DO [address] [place] [address] PCP - General Family Medicine 12/22/18 [place] Carl [address] [address] Obstetrics 01/09/19 Mathew Robledo, OD [address] [place] [address] Optometry 01/09/19 Lei Mckenna MD [address] [place] [address] Ophthalmology 04/21/20 Lawson Salamanca Jr., DO [address] [address] Ophthalmology 09/04/21 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 Relationship Specialty Start Date End Date Radha Jha, DO [address] [place] [address] PCP - General Family Medicine 12/22/18 Carl Sahu III [facility] [place] [address] Obstetrics 01/09/19 Mathew Robledo, OD [address] [place] [address] Optometry 01/09/19 Lei Mckenna MD [address] [place] [address] Ophthalmology 04/21/20 Lawson Salamanca Jr., DO [address] [phone] Ophthalmology 09/04/21 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 Relationship Specialty Start Date End Date Radha Jha, DO [address] [place] [address] PCP - General Family Medicine 12/22/18 Carl Shau III [facility] [place] [address] Obstetrics 01/09/19 Mathew Robledo, OD [address] [place] [address] Optometry 01/09/19 Lei Mckenna MD [address] [place] [address] Ophthalmology 04/21/20 Lawson Salamanca Jr., DO [address] [phone] Ophthalmology 09/04/21 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 Relationship Specialty Start Date End Date Radha Jha DO [address] [place] [address] PCP - General Family Medicine 12/22/18 Carl Sahu III, MD [address] [place] [phone] Obstetrics 01/09/19 Mathew Robledo, OD [address] [place] [address] Optometry 01/09/19 Lei Mckenna MD [address] [place] [address] Ophthalmology 04/21/20 Lawson Salamanca Jr., DO [address] [place] [phone] Ophthalmology 09/04/21 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 Relationship Specialty Start Date End Date Radha Jha DO [address] [place] [address] PCP - General Family Medicine 12/22/18 Carl Sahu III, MD [address] [place] [phone] Obstetrics 01/09/19 Mathew Robledo, OD [address] [place] [address] Optometry 01/09/19 Lei Mckenna MD [address] [place] [address] Ophthalmology 04/21/20 Lawson Salamanca Jr., DO [address] [place] [phone] Ophthalmology 09/04/21 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 Relationship Specialty Start Date End Date Radha Jha DO [facility] [address] [place] [address] PCP - General Family Medicine 12/22/18 Carl Sahu III, MD [address] [place] [phone] Obstetrics 01/09/19 Mathew Robledo OD [address] [place] [address] Optometry 01/09/19 Lei Mckenna MD [address] [place] [address] Ophthalmology 04/21/20 Lawson Salamanca Jr., DO [address] [place] [phone] Ophthalmology 09/04/21 Reason for Visit (unrecogniz ed section and content) Reason Comments Insurance Authorization Reclast Reason Onset Date Comments Immunizations 07/30/2022 Flu vaccination Reason Comments Refill Request INFORMATION SOURCE (unrecogn ized section and content) DATE CREATED AUTHOR AUTHOR'S DANI ATNITHYA 07/28/2022 [facility] DATE CREATED AUTHOR AUTHOR'S ORGANMAREK ATION 01/19/2023 [facility] DATE CREATED AUTHOR AUTHOR'S ORGANIZ ATION 08/17/2023 [facility] FOR RECORDS PERTAINING TO PATIENTS WHO ARE OR HAVE BEEN ENROLLED IN A CHEMICAL DEPENDENCY/SUBSTANCEABUSE PROGRAM, SOME INFORMATION MAY BE OMITTED. This clinical summary was aggregated from multiple sources. Caution should be exercised in using it in the provision of clinical care. This summary normalizes information from multiple sources, and as a consequence, information in this document may materially change the coding, format and clinical context of patient data. In addition, data may be omitted in some cases. CLINICAL DECISIONS SHOULD BE BASED ON THE PRIMARY CLINICAL RECORDS. [facility]. provides no warranty or guarantee of the accuracy or completeness of information in this document.
[2023-11-07 10:00] LABS: Absolute Lymphocyte Count 2.57 X10^3/uL (0.83-4.51); Absolute Neutrophil Count 5.8 X10^3/uL (2.0-7.7); Basophil# 0.06 X10^3/uL; Basophil% 0.6 % (0-1); Eosinophil# 0.15 X10^3/uL; Eosinophils% 1.6 % (0-5); Hematocrit 36.3 % (37-47); Hemoglobin 12.2 g/dL (12.0-15.0); Lymphocyte # 2.57 X10^3/ul (0.83-4.51); Lymphocyte % 26.9 % (19-41); Mean Corp Hgb Conc 33.6 g/dL (32-36); Mean Corpuscular Hgb 32.8 pg (27.0-32.0); Mean Corpuscular Volume 97.6 fL (81-99); Monocyte# 0.94 X10^3/uL; Monocyte% 9.8 % (0-10); NRBC Flagged by Analyzer 0 % (0-5); Neutrophil % 60.6 % (47-70); POSITIVE COUNT YES; RBC Distribution Width CV 13.4 % (11.6-14.6); Red Blood Count 3.72 M/mm3 (4.2-5.4); White Blood Count 9.6 K/mm3 (4.4-11.0)
[2023-11-07 10:26] LABS: Differential Comment SCANNED; Differential Indicated SCAN CRITERIA MET
[2023-11-07 12:04] LABS: Vitamin D,25 Hydroxy 70.1 ng/mL
[2023-11-07 12:39] LABS: ALB/GLOB Ratio 1.1 RATIO (0.9-2.4); AST(SGOT) 19 U/L (15-37); Alanine Aminotransfer ALT/SGPT 32 U/L (13-56); Albumin, Serum 3.8 g/dL (3.2-5.0); Alkaline Phosphatase 34 U/L (45-117); Anion Gap 9 (5-15); BUN 16 mg/dL (7-18); BUN/Creat Ratio 20.2 RATIO (10-20); Calcium,Total 9.1 mg/dL (8.5-10.1); Chloride 102 mmol/L (98-107); Creatinine, Serum 0.79 mg/dL (0.55-1.02); EST Glomerular Filtration Rate 76 mL/min (>60); Est Glom Filt Rate - Afr Amer 92 mL/min (>60); Globulin 3.4 g/dL (2.2-4.2); Glucose 91 mg/dL (74-106); Potassium 3.7 mmol/L (3.5-5.1); Protein, Total 7.2 g/dL (6.4-8.2); Sodium Level 133 mmol/L (136-145); Thyroid Stim Hormone (TSH) 4.47 uIU/mL (0.358-3.74)
== END | disposition home or self-care (01) ==
LOC: POLAB3 09:38
PROVIDERS: PCP Family Medicine Geriatric Medicine; Visit Provider Family Medicine Geriatric Medicine
DX: I10 Essential (primary) hypertension (principal); E55.9 Vitamin D deficiency, unspecified
CPT/HCPCS: 36415; 80053; 82306; 84443; 85025

== ENCOUNTER 2023-12-16 07:00 | Outpatient (RCR) | payer MEDICARE, OTHER, SELFPAY ==
--- NOTE | 2023-11-10 12:55 | HP.PTEVAL_ITS ---
Patient's Visit Information Visit Information Visit Information: LUIS ALFREDO PEREZ is a 67 year old F referred to Physical Therapy by Dr. Brandt Lopez MD with a diagnosis of L hip pain. Date of Evaluation: 11/10/23 Physical Therapist: Leeroy Mccray, DPT, OCS, CSCS Visit Plan Frequency: 3x /Week Duration: 4-6 Weeks Plan: 3x/week for 3-4 weeks for 1. NS strtengthening mat to HEP, neutral psine focus in standing especially, teach fis as HEP also. 2. Stretch HS and quad to HEP 3. 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 Subjective Subjective: Been dealing with L hip pain buttock and into groin but not down leg. Had MRI and does have DDD back. Gave meds and sent to suraj Castillo gave her injection in back and it helped but not for long. This pain started in July. She is very active walking and biking. Had a lady stay at her house and walked for 8 days quickly and that may have started it but mostly insidious. Dr. castillo gave another injection whcih did not help. Sent to Dr. Pablo who was puzzled by MRI and recommended another back injection two weeks ago which did not help. also given tramadol which did not help. Goes to chiropractor which she just started along with acupuncture which have not helped much. Sleep is not a problem on her sides. Been sleeping on back with pillow. Activities are pretty normal but they hurt. Use heat and cold. Basic ADLs are getting done. Hobbies: Walking and biking and working outside. Standing can hurt. Comfortable at rest sitting or lying down. Pain L hip and groin: Pain Intensity (Out of 10): 1 Pain Intensity Range: 0 and 9 Comment: am worst, stiff laterally. Objective Objective: L tightness and pain with walking. Posture is some scoliosis lumbar convex R. Kyphotic thoracic spine. Lumbar AROM is mod limited in ext and flexion and min in R SB. No increased pain. Walks without antalgia, marches, on toes on heels without difficulty. steps reciprocally without rail. reflexes 2/3 patella and achilles Sensation LE WNL to gross light touch. strength hips 3+, knees 4- and ankles 4/5 HS and quads min tight. PA pressure LB not painful Hip PROM full and symmetrical without pain, - OSMANY, -FADDIR, _ SCOUR L and R. Balance/Special Test Scores Lower Extremity Functional Score: 55 Goals Goal 1:: Return to walking 20+ minutes without pain Goal Time Frame: 4-6 Weeks Goal 2:: Pain 75% better adn 1/10 at worst Goal Time Frame: 4-6 Weeks Goal 3:: I appropriate HEP to manage condition Goal Time Frame: 4-6 Weeks Rehabilitation Potential Physical Therapy Diagnosis: Pain limiting function likely degenerative in low back Rehabilitation Potential: Fair Anticipated Interventions Patient/Client Instruction: Educate patient on: Condition and Plan of Care For the Purpose of:: To decrease pain, To improve muscle performance and motor function, To increase tolerance to activity/condition/position and To improve ability of physical actions for home/community/work/leisure Therapeutic Exercise to Include: Strength training, Postural training and Flexibilty training For the Purpose of:: To decrease pain, To increase ROM, To improve nutrient delivery to tissue, To improve muscle performance and motor function, To increase tolerance to activity/condition/position and To improve ability of physical actions for home/community/work/leisure Text: Thank you for the opportunity to evaluate your patient. For Medicare and Medicare HMO plans, please review the plan of care and approve it. It will need to be FAXED BACK to us at [phone] for Medicare purposes. For Medicare only, by signing this I certify the plan of care. Please let me know if there are questions or concerns regarding this plan of care. Physician Signature: Date:
--- NOTE | 2023-12-02 07:58 | HP.PTREVAL_ITS ---
Re-Evaluation Intro: Dr. Brandt Lopez MD, It has been my pleasure to treat LUIS ALFREDO PEREZ over the last 9 visits for L hip pain. Please see the progress note below for an update on the physical therapy plan of care! Subjective Subjective: Getting better. Don't have pain radiating into groin as much. It is intermittent. Not as sensitive to the touch. Pain up to 5/10 in posterior L hip. No reason for pain. Sleeping OK with tylenol pm. Activities at home are pretty normal. HEP: going OK. Objective Objective/Function: Max tender L piriformis and glut area. walking well without antalgia. LB AROM WFL and not painful except slightly with R SB/ today. LE strength sdtill weak in hips an core 4-, not overly painful. Steps reciprocal without pain. New POC 3x/week x 2-4 more toward same goals listed with fair prognosis Plan Plan Plan: 3x/week for 4 weeks for 1. DTR and rollout to L gluts and piriformis area, dig deep. 2. 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 Pt to continue current exercises I. Pt to attempt longer walks at home and monitor tolerance. Balance/Gait/Functional tests Balance/Special Test Scores Lower Extremity Functional Score: 71 Goals Goals Goal 1:: Return to walking 20+ minutes without pain Goal Time Frame: 4-6 Weeks Goal Progress: 20 minutes Goal 2:: Pain 75% better adn 1/10 at worst Goal Time Frame: 4-6 Weeks Goal Progress: 50%, approp Goal 3:: I appropriate HEP to manage condition Goal Time Frame: 4-6 Weeks Goal Progress: Progressing, needs gym Goal 4:: I gym exercises Goal Time Frame: 2-4 Weeks Goal Progress: NEW GOAL Goal 5:: Pain in L hip 1/10 at worst and 80% better overall Goal Time Frame: 2-4 Weeks Goal Progress: NEW GOAL Anticipated Interventions Anticipated Interventions Patient/Client Instruction: Educate patient on: Condition and Plan of Care For the Purpose of:: To decrease pain, To improve muscle performance and motor function, To increase tolerance to activity/condition/position and To improve ability of physical actions for home/community/work/leisure Therapeutic Exercise to Include: Strength training, Postural training and Fl exibilty training For the Purpose of:: To decrease pain, To increase ROM, To improve nutrient delivery to tissue, To improve muscle performance and motor function, To increase tolerance to activity/condition/position and To improve ability of physical actions for home/community/work/leisure Re-Evaluation Ending Re-evaluation ending: Please do not hesitate to contact me at [phone] by phone or if you have questions or concerns regarding this new plan of care! Sincerely, Leeroy Mccray, DPT, OCS, CSCS
--- NOTE | 2023-12-16 07:50 | HP.PTDCSUM ---
Discharge Summary D/C summary: It has been my pleasure to treat LUIS ALFREDO PEREZ referred by Dr. Brandt Lopez MD, with the diagnosis of L hip pain for a total of 15 visit(s). Discharge Date: 12/16/23 Please see the following information for a summary of their discharge status. Subjective Subjective: Better. Groin pain is gone. Lateral hip pain is tender but gone otherwise. Activities are normal. Walking is increasing 45 minutes as weather allows. Sleep is OK. Will see Pablo Tuesday. Will go to [facility] next week. Pain L hip and groin: Pain Intensity (Out of 10): 1 Overall Improvement % Improvement: 90 Objective Objective/Function: Full aROM LS without pain. tender mild l pririformis area. Good hip ROM without pain Goals Goal 1:: Return to walking 20+ minutes without pain Goal Progress: Goal Met Goal 2:: Pain 75% better adn 1/10 at worst Goal Progress: Goal Met Goal 3:: I appropriate HEP to manage condition Goal Progress: Goal Met Goal 4:: I gym exercises Goal Progress: Goal Met Goal 5:: Pain in L hip 1/10 at worst and 80% better overall Goal Progress: Progressing, part met, 90 Plan Plan: d/c to gym HEP D/C Information Discharge Comments: f/u doctor Tuesday. Will go to [facility] next week. d/c sentence: If there are questions or concerns regarding this patient's physical therapy, please feel free to call me at [phone]. Thank you for the referral of this patient. Sincerely, Leeroy Mccray, DPT, OCS, CSCS Balance/Gait/Functional tests Balance/Special Test Scores Lower Extremity Functional Score: 77 Improvement % Improvement: 90
== END 2023-12-16 08:49 | disposition home or self-care (01) ==
LOC: PT 07:00
PROVIDERS: PCP Family Medicine Geriatric Medicine; Referring Provider Family Medicine Geriatric Medicine; Visit Provider Family Medicine Geriatric Medicine
DX: M25.552 Pain in left hip (principal)
CPT/HCPCS: 97110; 97140; 97161; 97530

== ENCOUNTER → 2023-12-19 | Outpatient (CLI) | payer MEDICARE, OTHER, SELFPAY ==
[2023-12-19 12:19] LABS: Thyroid Stim Hormone (TSH) 0.05 uIU/mL (0.358-3.74)
--- OUTSIDE RECORDS SUMMARY | 2023-12-19 19:06 | XMS RPT_ITS | CCD ---
Author Name Unknown Address [address] [place] [address] Organization [facility] Care Team Providers Care Presser Automatic Name Role Phone Yudelka Radha CAM Primary Care Provider [phone] Carl Sahu III Unavailable Mathew Robledo OD Unavailable Lei Mckenna MD Unavailable Jadyn Caldwell DO, Arnold D Unavailable YUDELKA, RADHA L Primary Care Unavailable YUDELKA, RADHA L Primary Care Unavailable YUDELKA, ARDHA L Referring Unavailable YUDELKA, RADHA L Attending Unavailable ZAPIEN, CANDY Attending Unavailable YUDELKA, RADHA L Primary Care Unavailable YUDELKA, RADHA L Primary Care Unavailable YUDELKA, RADHA L Referring Unavailable YUDELKA, RADHA L Attending Unavailable Yudelka DORadha L Primary Care Provider Carl Sahu III Unavailable Mathew Robledo OD Unavailable Lei Mckenna MD Unavailable Jadyn Caldwell DO, Arnold D Unavailable Yudelka Radha CAM Primary Care Provider [phone] Carl Sahu III Unavailable Mathew Robledo OD Unavailable [phone] Lei Mckenna MD Unavailable Jadyn Caldwell DO, [...] to adverse reactions to drug 9 Unknown [facility] (13 sources) Penicillins Propensity to adverse reactions to drug 9 Unknown, Swelling [facility] Medications Completed/Discontinued Medications Medication Drug Class(es) Dates [...] 07-30-2022 14:44-0400 Body temperature 99.1 [degF] Nurse [place] Work Phone: [facility] Encounters Encounter Date Encounter Type Care Provider Facility Start: 09-25-2023 Refill Thelma Quill en 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.MASTERCAM PROGRAMMER Work Phone: [facility] Procedures Date Procedure Procedure Detail [...] Sahu MD Work Phone: Start: 08-15-2008 CYTOLOGY SALES ASSOCIATE, CONVERTED Fred Rodriguez Work Phone: Start: 06-06-2007 CYTOLOGY SALES ASSOCIATE, CONVERTED Fred Rodriguez Work Phone: Start: 04-01-2006 CYTOLOGY SALES ASSOCIATE, CONVERTED Fred Rodriguez Work Phone: Plan of Treatment Date Care Activity Detail Author Start: 04-22-2026 Lipid 1996 panel - S romie or Plasma Lipid Screening [facility] Start: 04-22-2026 LIPID SCREEN LIPID SCREEN [facility] Start: 04-28-2025 DIABETES SCREEN DIABETES SCREEN [facility] Start: 04-28-2025 Diabetes Screening Diabetes Screenin g [facility] Start: 04-22-2024 DIABETES SCREEN DIABETES SCREEN [facility] Start: 01-16-2024 Mammography [facility] Start: 06-24-2023 Covid-19 Vaccine () Covid-19 Vaccine () [facility] Start: 06-24-2023 Influenza vaccination Influenza Vacc ine (#1) [facility] Start: 04-28-2023 Adult depression scr eening assessment DEPRESSION SCREENING [facility] Start: 04-28-2023 ANNUAL PCP TEAM TREE SCOUT ANKIT DISEASE VISIT ANNUAL PCP TEAM CHRONIC DISEASE VISIT [facility] Start: 01-08-2023 ANNUAL PCP TEAM TREE SCOUT ANKIT DISEASE VISIT ANNUAL PCP TEAM CHRONIC DISEASE VISIT [facility] Start: 10-29-2022 COLORECTAL CANCER SCREENING COLORECTAL CANCER SCREENING [facility] Immunizations Immunization Date Immunization Notes Care Provider Elinor de dios 07-30-2022 influenza, high-dose , quadrivalent vaccine (FLUZONE HIGH DOSE QUADRIVALENT) Nurse [place] Work Phone: [facility] 07-30-2022 influenza virus vaccine, unspecified formulation Fred Rodriguez Jr. Work Phone: [facility] 04-28-2022 zoster vaccine recombinant Radha Yudelka DO Work Phone: [facility] 08-17-2021 influenza, high-dose , quadrivalent vaccine (FLUZONE HIGH DOSE QUADRIVALENT) Radha Yudelka DO Work Phone: [facility] 08-21-2020 influenza, high-dose , quadrivalent vaccine (FLUZONE HIGH DOSE QUADRIVALENT) Radha Yudelka DO Work Phone: [facility] 08-21-2020 pneumococcal polysaccharide vaccine, 23 valent Radha Yudelka DO Work Phone: [facility] 08-09-2018 Influenza, injectabl e, Madin [place] Canine Kidney, preservative free, quadrivalent Radha Yudelka DO Work Phone: [facility] NEGATED: Highlighted row has not occurred!01-09-2019 tetanus toxoid, reduced diphtheria toxoid, and acellular pertussis vaccine, adsorbed Radha Yudelka DO Work Phone: [facility] Payers Date Payer Category Payer Medicare [id number] 2019 Unknown MMO MMO MEDICARE SUPPLEMENT [id number] 2019-Present [phone] [address] [place] [address] Indemnity [id number] 2019 Unknown MMO MMO MEDICARE SUPPLEMENT [id number] 2019-Present [phone] [address] [place] [address] Indemnity [id number] 2018 Medicare MEDICARE MEDICAR E A AND B [id number] 2018-Present [phone] [place] [address] Medicare [id number] 2018 Medicare MEDICARE MEDICAR E A AND B [id number] 2018-Present [phone] [place] [address] Medicare [id number] 2018 Medicare [id number] 1955 Unknown [id number] Unknown [id number] Unknown [id number] Social History Date Type Detail Facility Start: 12-22-2018 Tobacco smoking stat [facility] Never smoked tobacco [facility] Start: 12-22-2018 Tobacco use and exposure Smoke less tobacco non-user [facility] Start: 01-08-2022 End: 04-28-2022 Alcohol intake Current non-drinker of alcohol (finding) [facility] Start: 1955 Sex Assigned At Not on file [facility] Start: 04-18-2022 End: 07-30-2022 Exposure to SARS-CoV-2 (event) Not sure [facility] Tobacco smoking stat [facility] Tobacco smoking consumption unknown [facility] Start: 04-28-2022 End: 11-21-2022 History of Social function [facility] Start: 04-28-2022 End: 11-21-2022 Tobacco use panel [facility] Adult Depression Screening Assessment 0 [facility] Clinical Notes 09-04-2021 to 09-26-2023 Telephone Encounter - Pippa Miranda MA - 09/26/2023 1:45 PM ESTTelephone Encounter - Radha Jha DO - 09/26/2023 12:20 PM ESTTelephone Encounter - Lew Dickens - 07/27/2022 9:38 AM EDT Note Date & Type Note Facility 09-26-2023 Miscellaneous Notes Formattin g of this note might be different from the original. Her and her spouse transferred to [place]. She cancelled April 2023. Did she move?? [...] last visit:Visit date not found Phone #: [phone] (home) [phone] (cell) The patients preferred pharmacy has been captured for this encounter? yes documented in this encounter [facility] 07-27-2022 Miscellaneous Notes Formattin g of this [...] wait between vaccines. Please advise Mai. Thanks! [phone] (home) [phone] (cell) Patient last appointment: 04/28/2022 Lew Dickens documented in this encounter [facility] 04-28-2022 Note HNO ID: [id number] Author: Radha Jha DO Service: ? Author Type: Physician Type: Progress Notes Filed: 04/28/2022 9:11 AM Note Text: SUBJECTIVE Mai Perez is a 66 year old female here today for routine annual follow up: Patient presents with: Hypertension: Stable. Hypothyroidism: Stable. Osteoporosis: Reclast infusion August 2021. Will order for August 2022. Macular degeneration: Follows with Dr. Salamanca and Dr. Mathew Robledo at [facility]. Concerns: would like a shingrix vaccine. Feeling [...] Macular degeneration Follows Dr. Mathew Robledo @ [facility]. every 6 months - Osteoporosis 10 years [...] normal. Thought Conten (more content not included)... [facility] 04-28-2022 Miscellaneous Notes Are you able to see if a PA is required for this pt Reclast. She is not due until August this year. But Dr. Jha wanted to go ahead and order this. Let me know Thank you very much. documented in this encounter [facility] 04-22-2022 Miscellaneous Notes Noted thank you Patient calls today. States at her upcoming visit she would like to get shingles vaccination. Added to appointment notes. Thanks Sharath Carter documented in this encounter [facility] 02-18-2022 Miscellaneous Notes Called Mai and gave her Candy's message below and also told her the cost for each shot. She said when Guanaco got his at [facility], it was also $200. She will [...] at pharmacy cheaper. documented in this encounter [facility] 01-08-2022 Note HNO ID: [id number] Author: Tresa Zapien APRN.CNP Service: ? Author [...] Macular degeneration Follows Dr. Mathew Robledo @ [facility]. every 6 months - Osteoporosis 10 years [...] - ACYCLOVIR 400 MG TABLET Tresa Zapien APRN.MASTERCAM PROGRAMMER The above medical documentation was generated using Gini[employer] voice recognition system, as such, the contents may contain grammatical errors. [facility] 11-16-2021 Note Patient Outreach (FM UPCE) MAI PEREZ ([id number]) 1955 F Date Time Provider Department 11/16/21 [facility] your visit today, we recorded the following information about you: Sharath Murphy RN 11/16/2021 11:10 AM Signed Chart update for clinical recovery for COVID Allergies As of Date: 11/16/2021 Noted Allergy Reaction PENICILLINS 12/22/2018 16 - Unknown Date Reviewed: 09/04/2021 Reviewed by: Radha hJa DO - Fully Assessed Prescriptions as of [...] Encounter Status:Closed by SHARATH MURPHY on 11/16/21 [facility] 11-16-2021 Note HNO ID: [id number] Author: Sharath Murphy RN Service: ? Author Type: Registered Nurse Type: Progress Notes Filed: 11/16/2021 11:10 AM Note Text: Chart update for clinical recovery for AMANDA [facility] 09-04-2021 Note HNO ID: [id number] Author: Radha Jha, DO Service: ? Author [...] Macular degeneration Follows Dr. Mathew Robledo @ [facility]. every 6 months - Osteoporosis 10 years [...] 3) Encouraged pro (more content not included)... [facility] Essential hypertension Unspecified essential hypertension Hypothyroidism, unspecified type [facility] this [facility] Diagnosis Essential hypertension Unspecified essential hypertension Hypothyroidism, unspecified type documented in this encounter [facility] Summary Purpose Family History No Family History [...] or prosecute any alcohol or drug abuse patient.[facility] the event this information is protected by the Federal Confidentiality of Alcohol and Drug Abuse Patient Records regulations: The Federal rules restrict any use of the information to criminally investigate or prosecute any alcohol or drug abuse patient.[facility] the event this information is protected by the Federal Confidentiality of Alcohol and Drug Abuse Patient Records regulations: The Federal rules restrict any use of the information to criminally investigate or prosecute any alcohol or drug abuse patient.[facility] the event this information is protected by the Federal Confidentiality of Alcohol and Drug Abuse Patient Records regulations: The Federal rules restrict any use of the information to criminally investigate or prosecute any alcohol or drug abuse patient.[facility] Center[facility] the event this information is protected by the Federal Confidentiality of Alcohol and Drug Abuse Patient Records regulations: The Federal rules restrict any use of the information to criminally investigate or prosecute any alcohol or drug abuse patient.[facility] Center[facility] the event this information is protected by the Federal Confidentiality of Alcohol and Drug Abuse Patient Records regulations: The Federal rules restrict any use of the information to criminally investigate or prosecute any alcohol or drug abuse patient.[facility] Center[facility] the event this information is protected by the Federal Confidentiality of Alcohol and Drug Abuse Patient Records regulations: The Federal rules restrict any use of the information to criminally investigate or prosecute any alcohol or drug abuse patient.[facility] Center[facility] the event this information is protected by the Federal Confidentiality of Alcohol and Drug Abuse Patient Records regulations: The Federal rules restrict any use of the information to criminally investigate or prosecute any alcohol or drug abuse patient.[facility] Center[facility] the event this information is protected by the Federal Confidentiality of Alcohol and Drug Abuse Patient Records regulations: The Federal rules restrict any use of the information to criminally investigate or prosecute any alcohol or drug abuse patient.[facility] Center[facility] the event this information is protected by the Federal Confidentiality of Alcohol and Drug Abuse Patient Records regulations: The Federal rules restrict any use of the information to criminally investigate or prosecute any alcohol or drug abuse patient.[facility] CenterIn the event this information is protected by the Federal Confidentiality of Alcohol and Drug Abuse Patient Records regulations: The Federal rules restrict any use of the information to criminally investigate or prosecute any alcohol or drug abuse patient.[facility] CenterIn the event this information is protected by the Federal Confidentiality of Alcohol and Drug Abuse Patient Records regulations: The Federal rules restrict any use of the information to criminally investigate or prosecute any alcohol or drug abuse patient.[facility] CenterIn the event this information is protected by the Federal Confidentiality of Alcohol and Drug Abuse Patient Records regulations: The Federal rules restrict any use of the information to criminally investigate or prosecute any alcohol or drug abuse patient.[facility] CenterIn the event this information is protected by the Federal Confidentiality of Alcohol and Drug Abuse Patient Records regulations: The Federal rules restrict any use of the information to criminally investigate or prosecute any alcohol or drug abuse patient.[facility] Care Teams (unrecognized sec tion and content) Presser Automatic Relationship Specialty Start Date End Date Radha Jha DO [address] [place] [address] PCP - General Family Practice 12/22/18 Carl Sahu III [address] [place] [address] Obstetrics 01/09/19 Mathew Robledo, OD [address] [place] [address] Optometry 01/09/19 Lei Mckenna MD [address] [place] [address] Ophthalmology 04/21/20 Lawson Salamanca Jr., DO [address] [address] Ophthalmology 09/04/21 Presser Automatic Relationship Specialty Start Date End Date Radha Jha, DO [address] [place] [address] PCP - General Family Practice 12/22/18 Carl Sahu III [facility] [place] [address] Obstetrics 01/09/19 Mathew Robledo, OD [address] [place] [address] Optometry 01/09/19 Lei Mckenna MD [address] [place] [address] Ophthalmology 04/21/20 Lawson Salamanca Jr., DO [address] [address] Ophthalmology 09/04/21 Presser Automatic Relationship Specialty Start Date End Date Radha Jha, DO [address] [place] [address] PCP - General Family Medicine 12/22/18 Tyler HillCarl [address] [address] Obstetrics 01/09/19 Mathew Robledo, OD [address] [place] [address] Optometry 01/09/19 Lei Mckenna MD [address] [place] [address] Ophthalmology 04/21/20 Lawson Salamanca Jr., DO [address] [address] Ophthalmology 09/04/21 Presser Automatic Relationship Specialty Start Date End Date Radha Jha, DO [address] [place] [address] PCP - General Family Medicine 12/22/18 [place] Carl [address] [address] Obstetrics 01/09/19 Mathew Robledo, OD [address] [place] [address] Optometry 01/09/19 Lei Mckenna MD [address] [place] [address] Ophthalmology 04/21/20 Lawson Salamanca Jr., DO [address] [address] Ophthalmology 09/04/21 Presser Automatic Relationship Specialty Start Date End Date Radha Jha, DO [address] [place] [address] PCP - General Family Medicine 12/22/18 Carl Sahu III [facility] [place] [address] Obstetrics 01/09/19 Mathew Robledo, OD [address] [place] [address] Optometry 01/09/19 Lei Mckenna MD [address] [place] [address] Ophthalmology 04/21/20 Lawson Salamanca Jr., DO [address] [phone] Ophthalmology 09/04/21 Presser Automatic Relationship Specialty Start Date End Date Radha Jha, DO [address] [place] [address] PCP - General Family Medicine 12/22/18 Carl Sahu III [facility] [place] [address] Obstetrics 01/09/19 Mathew Robledo, OD [address] [place] [address] Optometry 01/09/19 Lei Mckenna MD [address] [place] [address] Ophthalmology 04/21/20 Lawson Salamanca Jr., DO [address] [phone] Ophthalmology 09/04/21 Presser Automatic Relationship Specialty Start Date End Date Radha Jha DO [address] [place] [address] PCP - General Family Medicine 12/22/18 Carl Sahu III, MD [address] [place] [phone] Obstetrics 01/09/19 Mathew Robledo, OD [address] [place] [address] Optometry 01/09/19 Lei Mckenna MD [address] [place] [address] Ophthalmology 04/21/20 Lawson Salamanca Jr., DO [address] [place] [phone] Ophthalmology 09/04/21 Presser Automatic Relationship Specialty Start Date End Date Radha Jha DO [address] [place] [address] PCP - General Family Medicine 12/22/18 Carl Sahu III, MD [address] [place] [phone] Obstetrics 01/09/19 Mathew Robledo, OD [address] [place] [address] Optometry 01/09/19 Lei Mckenna MD [address] [place] [address] Ophthalmology 04/21/20 Lawson Salamanca Jr., DO [address] [place] [phone] Ophthalmology 09/04/21 Presser Automatic Relationship Specialty Start Date End Date Radha Jha DO [facility] [address] [place] [address] PCP - General Family Medicine 12/22/18 Carl Sahu III, MD [address] [place] [phone] Obstetrics 01/09/19 Mathew Robledo OD [address] [place] [address] Optometry 01/09/19 Lei Mckenna MD [address] [place] [address] Ophthalmology 04/21/20 Lawson Salamanca Jr., DO [address] [place] [phone] Ophthalmology 09/04/21 Reason for Visit (unrecogniz ed section and content) Reason Comments Insurance Authorization Reclast Reason Onset Date Comments Immunizations 07/30/2022 Flu vaccination Reason Comments Refill Request INFORMATION SOURCE (unrecogn ized section and content) DATE CREATED AUTHOR AUTHOR'S DANI ATNITHYA 07/28/2022 [facility] DATE CREATED AUTHOR AUTHOR'S ORGANMAREK ATION 01/19/2023 [facility] DATE CREATED AUTHOR AUTHOR'S ORGANIZ ATION 08/17/2023 [facility] FOR RECORDS PERTAINING TO PATIENTS WHO [...] BE BASED ON THE PRIMARY CLINICAL RECORDS. [facility] [facility]. provides no warranty or guarantee of the accuracy or completeness of information in this document.
== END | disposition home or self-care (01) ==
LOC: POLAB3 11:15
PROVIDERS: PCP Family Medicine Geriatric Medicine; Visit Provider Family Medicine Geriatric Medicine
DX: E03.9 Hypothyroidism, unspecified (principal)
CPT/HCPCS: 36415; 84443

== ENCOUNTER → 2024-02-02 | Outpatient (CLI) | payer OTHER, SELFPAY ==
[2024-02-02 12:22] LABS: Thyroid Stim Hormone (TSH) 0.13 uIU/mL (0.358-3.74)
== END | disposition home or self-care (01) ==
LOC: POLAB3 10:13
PROVIDERS: PCP Family Medicine Geriatric Medicine; Visit Provider Family Medicine Geriatric Medicine
DX: E03.9 Hypothyroidism, unspecified (principal)
CPT/HCPCS: 36415; 84443

== ENCOUNTER → 2024-02-24 | Outpatient (CLI) | payer MEDICARE, OTHER, SELFPAY ==
[2024-02-24 10:00] LABS: Absolute Lymphocyte Count 1.66 X10^3/uL (0.83-4.51); Absolute Neutrophil Count 2.4 X10^3/uL (2.0-7.7); Basophil# 0.02 X10^3/uL; Basophil% 0.4 % (0-1); Eosinophils% 2.2 % (0-5); Hematocrit 35.6 % (37-47); Lymphocyte # 1.66 X10^3/ul (0.83-4.51); Lymphocyte % 35.7 % (19-41); Mean Corp Hgb Conc 33.7 g/dL (32-36); Mean Corpuscular Hgb 31.8 pg (27.0-32.0); Mean Corpuscular Volume 94.4 fL (81-99); Mean Platelet Vol. 9.6 fl (6.2-12.0); Monocyte# 0.49 X10^3/uL; Monocyte% 10.5 % (0-10); NRBC Flagged by Analyzer 0 % (0-5); Neutrophil # 2.37 X10^3/uL (2.7-7.7); Platelet Count 301 K/mm3 (150-450); RBC Distribution Width CV 11.9 % (11.6-14.6); RBC Distribution Width SD 41.4 fl (35.1-43.9); Red Blood Count 3.77 M/mm3 (4.2-5.4); White Blood Count 4.7 K/mm3 (4.4-11.0)
[2024-02-24 10:20] LABS: Vitamin D,25 Hydroxy 86.6 ng/mL
[2024-02-24 10:38] LABS: ALB/GLOB Ratio 1.1 RATIO (0.9-2.4); AST(SGOT) 28 U/L (15-37); Alanine Aminotransfer ALT/SGPT 34 U/L (13-56); Albumin, Serum 3.7 g/dL (3.2-5.0); Alkaline Phosphatase 30 U/L (45-117); Anion Gap 6 (5-15); BUN 18 mg/dL (7-18); BUN/Creat Ratio 18.4 RATIO (10-20); Chloride 104 mmol/L (98-107); Cholesterol 184 mg/dL (200); Creatinine, Serum 0.98 mg/dL (0.55-1.02); EST Glomerular Filtration Rate 60 mL/min (>60); Est Glom Filt Rate - Afr Amer 72 mL/min (>60); Globulin 3.3 g/dL (2.2-4.2); Glucose 87 mg/dL (74-106); High Density Lipoprotein 41 mg/dL; Potassium 3.8 mmol/L (3.5-5.1); Sodium Level 138 mmol/L (136-145); T4 Free Direct 1.47 ng/dL (0.76-1.46); Triglycerides 87 mg/dL; Very Low Density Lipoprotein 17 mg/dL (5-40)
== END | disposition home or self-care (01) ==
PROVIDERS: PCP Family Medicine; Referring Provider Family Medicine; Visit Provider Family Medicine
DX: I10 Essential (primary) hypertension (principal); E03.9 Hypothyroidism, unspecified; E55.9 Vitamin D deficiency, unspecified
CPT/HCPCS: 36415; 80053; 80061; 82306; 84439; 84443; 85025

== ENCOUNTER → 2024-09-11 | Outpatient (CLI) | payer MEDICARE, OTHER, SELFPAY ==
[2024-09-11 15:48] LABS: Thyroid Stim Hormone (TSH) 0.904 uIU/mL (0.358-3.740)
== END | disposition home or self-care (01) ==
LOC: MTLAB 13:16
PROVIDERS: PCP Family Medicine; Referring Provider Family Medicine; Visit Provider Family Medicine
DX: E03.9 Hypothyroidism, unspecified (principal)
CPT/HCPCS: 36415; 84443

== ENCOUNTER → 2025-02-14 | Outpatient (CLI) | payer MEDICARE, OTHER, SELFPAY ==
--- NOTE | 2025-02-14 12:11 | US_ITS ---
PROCEDURE: THYROID 02/14/2025 REASON FOR EXAM: HYPOTHYROID TECHNIQUE: High-frequency thyroid ultrasound, including grayscale and color-flow images. REFERENCE LINKS: TI-RADS Chart: [email or web address] TI-RADS Calculator Tool with Reference Images: [email or web address]/ FINDINGS: Right thyroid lobe size: 4.5 x 1.4 x 0.9 cm Left thyroid lobe size: 2.4 x 0.8 x 1.1 cm Isthmus: 0.2 cm Background parenchymal echotexture is heterogeneous Nodules: Nodule 1: 7 x 5 x 6 mm solid hypoechoic wider than tall ill-defined margin nodule with peripheral calcifications (TR 4) in the anterior right lobe consistent with an adenoma. US/Thyroid IMPRESSION: Thyroiditis with a small peripherally calcified adenoma in the right lobe. RECOMMENDATION: Based on most suspicious nodule. Nodule size = largest diameter Only evaluate nodule if =>5 mm. Growth > 20% in 2 dimensions = worsening. Follow up to 4 nodules. Recommend biopsy for no more than 2 nodules. Reading Location: [id number]
--- NOTE | 2025-02-14 12:11 | BD_ITS ---
PROCEDURE: DEXA BONE DENSITY STUDY 02/14/2025 REASON FOR EXAM: F, age 69 y/o . Postmenopausal. TECHNIQUE: DXA scan of sites with data reported below. REFERENCE LINKS: ISCD Adult Positions COMPARISON: None FINDINGS: BMD and T-SCORES Lumbar spine: 0.803 g/cm2, T-score -2.2 Levels: L1 through L4 Left femoral neck: 0.611 g/cm2, T-score -2.1 Femoral neck comparison data not recommended for monitoring change. Left total hip: 0.725 g/cm2, T-score -1.8 Right femoral neck: 0.638 g/cm2, T-score -1.9 Femoral neck comparison data not recommended for monitoring change. Right total hip: 0.711 g/cm2, T-score -1.9 The World Health Organization has defined the following categories based on bone density: Normal bone density: T-score equal to or greater than -1.0 Osteopenia: T-score between -1.0 and -2.5 Osteoporosis: T-score equal to or less than -2.5 FRAX (or Comparable) Fracture Risk Assessment: Note: FRAX is not to be reported in setting of normal range bone density, osteoporosis on DEXA, known history of osteoporosis, prior osteoporotic hip or vertebral fracture, or for any patient undergoing pharmacological treatment for bone loss.) The National Osteoporosis Foundation (NOF) recommends pharmacological treatment for patients with a FRAX 10-year risk of 3% or higher for a hip fracture, or 20% or higher for a major osteoporotic fracture, to prevent osteoporosis and reduce fracture risk. The patient does meet the pharmacological treatment recommendations for prevention of osteoporosis. BD/Dexa Bone Density Study IMPRESSION: OSTEOPENIA. Recommend follow-up as clinically warranted. Reading Location: [facility]
== END | disposition home or self-care (01) ==
LOC: OPBD 12:08
PROVIDERS: PCP Family Medicine; Referring Provider Family Medicine; Visit Provider Family Medicine
DX: M81.0 Age-related osteoporosis without current pathological fracture (principal); E03.9 Hypothyroidism, unspecified
CPT/HCPCS: 76536; 77080

== ENCOUNTER → 2025-05-02 | Outpatient (CLI) | payer MEDICARE, OTHER, SELFPAY ==
[2025-05-02 12:09] LABS: Hematocrit 37.4 % (37-47); Hemoglobin 12.8 g/dL (12.0-15.0); Immature Granulocytes Count 0.020 X10^3/uL (0.0-0.0); Mean Corp Hgb Conc 34.2 g/dL (32-36); Mean Corpuscular Volume 92.1 fL (81-99); Mean Platelet Vol. 10.0 fl (6.2-12.0); NRBC Flagged by Analyzer 0 % (0-5); Platelet Count 293 K/mm3 (150-450); RBC Distribution Width CV 12.2 % (11.6-14.6); RBC Distribution Width SD 40.9 fl (35.1-43.9); Red Blood Count 4.06 M/mm3 (4.2-5.4); White Blood Count 5.5 K/mm3 (4.4-11.0)
[2025-05-02 12:50] LABS: AST(SGOT) 29 U/L (<=31); Alanine Aminotransfer ALT/SGPT 27 U/L (<=34); Albumin, Serum 4.4 g/dL (3.4-4.8); Alkaline Phosphatase 46 U/L (35-104); Anion Gap 13 (5-15); BUN 21 mg/dL (4-19); BUN/Creat Ratio 24.4 RATIO (10-20); Calcium,Total 9.6 mg/dL (7.6-11.0); Carbon Dioxide 24.2 mmol/L (21.0-32.0); Chloride 102 mmol/L (98-108); Cholesterol 216 mg/dL (<=200); Globulin 3.0 g/dL (2.2-4.2); Glucose 95 mg/dL (70-99); Low Density Lipoprotein Calc. 148 mg/dL; Potassium 3.8 mmol/L (3.3-5.1); Triglycerides 125 mg/dL; Very Low Density Lipoprotein 25 mg/dL (5-40); cholesterol:hdl ratio screen 5.00
== END | disposition home or self-care (01) ==
LOC: MFPLAB 10:10
PROVIDERS: PCP Family Medicine; Referring Provider Family Medicine; Visit Provider Family Medicine
DX: I10 Essential (primary) hypertension (principal); E03.9 Hypothyroidism, unspecified
CPT/HCPCS: 36415; 80053; 80061; 84439; 84443; 85025